=== PATIENT | female | born 1985 | race Caucasian/White ===

== ENCOUNTER 2019-07-27 13:52 | Outpatient (RCR) | payer BC, SELFPAY | END 2019-10-25 23:59 | disposition home or self-care (01) | LOC: ANHLAB 13:52 | PROVIDERS: Visit Provider Obstetrics & Gynecology | DX: O20.0 Threatened abortion (principal); Z3A.00 Weeks of gestation of pregnancy not specified | CPT/HCPCS: 36415 ==

== ENCOUNTER 2019-10-29 08:35 | Emergency (ER) | payer BC, SELFPAY ==
[2019-10-29 09:00] VITALS: BP 125/74; PULSE 106; RESP 16; TEMP 36.5; O2SAT 99
--- NOTE | 2019-10-29 10:16 | ED.GENADULT ---
HPI - General Adult General Chief complaint: Upper Respiratory Infection Stated complaint: cough Time Seen by Provider: 10/29/19 10:16 Source: patient and RN notes reviewed Mode of arrival: ambulatory Limitations: no limitations History of Present Illness HPI narrative: 34-year-old 24 weeks female with complaints of upper respiratory infection symptoms, congestion, and cough for 4 days. Tylenol (last 10/28/19 @23:00) with little relief. Stephie in concerned about her symptoms due to her and had a recent exposure to Influenza. Dry cough with intermittent productive cough (clear phlegm). Rhinorrhea and nasal congestion. No exacerbating factors. No high fevers or chills. No sore throat, drooling, neck or throat swelling. No nausea, vomiting, and abdominal pain. Denies chest pain, dyspnea, coughing up blood, difficulty swallowing, jaw pain, dental pain, facial pain, foreign body sensation, and rash. Complains of LT eye redness for 1 day. Recent exposure to Bacterial Conjunctivitis. Denies itching, light sensitivity, and matted eyes upon arising in the am. No treatment. Denies drainage, swelling or irritation with redness of LT eye. No upper or lower eyelids swelling. No copious drainage. No exacerbating factors No relieving factors. Denies blurred vision, double vision, sensation of foreign body, or pain of eye with movement. Some parts of this dictation were generated by voice recognition software and may contain typographical and/or grammatical inaccuracies. Related Data Home Medications Medication Instructions Recorded Confirmed [facility]#95-ferrous fumarate-FA 1 tablet PO DAILY 10/29/19 10/29/19 [] aspirin [Aspirin Childrens] 81 mg PO DAILY 10/29/19 10/29/19 Allergies Allergy/AdvReac Type Severity Reaction Status Date / Time No Known Allergies Allergy Verified 10/29/19 09:57 Review of Systems Review of Systems: Narrative: CONSTITUTIONAL: Denies fever, chills, sweats. EYES: Denies visual changes, discharge. Complains of redness to LT eye. ENT: Complains of rhinorrhea, congestion. Denies sore throat, otalgia. CARDIOVASCULAR: Denies chest pain, palpitations, edema. RESPIRATORY: Denies dyspnea, wheezing. Complains of dry cough, intermittent productive cough. GASTROINTESTINAL: Denies abdominal pain, nausea, vomiting, diarrhea. GENITOURINARY: Denies dysuria, hematuria, abnormal discharge. SKIN: Denies rash or itching. MUSCULOSKELETAL: Denies acute back pain, joint pain, myalgia. NEUROLOGIC: Denies numbness or focal weakness. PSYCHIATRIC: Denies anxiety or depression. All systems reviewed & are unremarkable except as noted in HPI and below. [facility] Past Medical History Medical History (Updated 10/30/19 @ 00:00 by Earle Gomez) Hypertension during Surgical History Surgical History (Updated 10/29/19 @ 10:29 by SERGEI Zhu) History of adenoidectomy History of tonsillectomy Family History Family History (Updated 10/29/19 @ 10:29 by SERGEI Zhu) Father Acute myocardial infarction Blood clot in vein Social History Social History (Updated 10/29/19 @ 10:30 by SERGEI Zhu) Smoking status: Never smoker Second hand tobacco smoke exposure: No Alcohol intake: never Substance use: never Living arrangements: with family Occupation/Education: unemployed Gender identity (if verbalized by the patient): Female Comments At time of signature, agree with nurse past medical, surgical, social, and family history. There is no relevant family history pertinent to the presenting complaint. Exam Narrative: Exam Narrative: GENERAL: This is a well-nourished, well-developed patient, in no apparent distress. Speaks in full sentences and ambulates with steady gait without dyspnea. HEAD: normocephalic, atraumatic. EYES: PERRL. Sclera clear/white to RT eye only. LT eye sclera angela and clear, no swelling, no tenderness on pal
[2019-10-29 10:40] VITALS: PULSE 80
== END 2019-10-29 10:40 | disposition home or self-care (01) ==
PROVIDERS: Emergency Provider Nurse Practitioner Family; PCP Family Medicine
DX: O99.512 Diseases of the respiratory system complicating pregnancy, second trimester (principal); Z3A.24 24 weeks gestation of pregnancy; J06.9 Acute upper respiratory infection, unspecified; O99.89 Other specified diseases and conditions complicating pregnancy, childbirth and the puerperium; H10.9 Unspecified conjunctivitis
CPT/HCPCS: 87804; 99213; G0463

== ENCOUNTER 2020-01-29 08:49 | Outpatient (RCR) | payer BC, SELFPAY ==
[2020-01-29 09:33] VITALS: BP 147/75; PULSE 112
== END 2020-02-06 07:38 | disposition home or self-care (01) ==
LOC: ANHOBOP 08:49
PROVIDERS: PCP Family Medicine; Visit Provider Obstetrics & Gynecology
DX: O16.3 Unspecified maternal hypertension, third trimester (principal); Z3A.37 37 weeks gestation of pregnancy
CPT/HCPCS: 59025

== ENCOUNTER 2020-02-03 09:46 | Outpatient (CLI) | payer BC, SELFPAY ==
[2020-02-03 10:28] LABS: Hematocrit 35.6 % (37.0-47.0); Hemoglobin 11.6 g/dL (12.0-15.0); Mean Corpuscular HGB Conc 32.6 g/dl (32-36); Mean Corpuscular Hemoglobin 29.7 pg (26-34); Mean Corpuscular Volume 91.3 fl (80-100); Mean Platelet Volume 9.7 fl (7.4-10.4); Platelet Count Result 328 k/mm3 (150-375); Red Cell Distribution Width 13.6 % (11.5-14.5); White Blood Count 12.5 K/mm3 (4.5-10.0)
[2020-02-03 12:49] LABS: Rapid Plasma Reagin Non-Reactive (NonReactive)
== END 2020-02-03 09:47 | disposition home or self-care (01) ==
LOC: ANHLAB 09:47
PROVIDERS: PCP Family Medicine; Visit Provider Obstetrics & Gynecology
DX: Z34.93 Encounter for supervision of normal pregnancy, unspecified, third trimester (principal); Z3A.00 Weeks of gestation of pregnancy not specified
CPT/HCPCS: 36415; 85027; 86592; 86850; 86900; 86901

== ENCOUNTER 2020-02-05 08:30 | Inpatient (IN) | payer BC, SELFPAY ==
--- NOTE | 2020-01-16 14:07 | PC.NURSE ---
PATIENT STATES SHE HAS A PLACENTA PREVIA--STATES DR SMITH IS GOING TO SCHEDULE HER FOR C/S AT END OF JANUARY OR February INSTRUCTED PATIENT ON BEING IN OB 2 HOURS BEFORE SURGERY TIME, NOTHING BY MOUTH AFTER MIDNIGHT THE NIGHT BEFORE SURGERY. PATIENT GIVEN REQUISITION FOR PRE-OP LABS TO BE DRAWN BEFORE SURGERY
[2020-02-05] VITALS (49 sets, daily range): BP systolic 112–144; BP diastolic 62–100; PULSE 67–99; RESP 14–20; TEMP 36.2–37.2; O2SAT 95–100
--- NOTE | 2020-02-05 08:53 | P.PNAN_ITS ---
Anes - Initial Pre Proc Eval Procedure: Operation Date: 02/05/20 10:30 Proposed Procedures p Primary Section - Gris Schwartz MD Date/Time: 02/05/20 08:53 Surgeon: Gris Schwartz MD Pre Op Diagnosis: c/s Patient Data Age: 34 Gender: F Height: Weight: 150 kg Last Vital Signs Pulse 95 02/05/20 08:46 BP 135/83 02/05/20 08:46 Allergies Allergy/AdvReac Type Severity Reaction Status Date / Time No Known Allergies Allergy Verified 01/16/20 13:46 Home Medications Medication Instructions Recorded Confirmed Type [facility]#95-ferrous fumarate-FA 1 tablet PO DAILY 10/29/19 10/29/19 History [] aspirin [Aspirin Childrens] 81 mg PO DAILY 10/29/19 10/29/19 History Patient hx anesthesia problems: none Family hx anesthesia problems: none [facility] Past Medical History Medical History (Updated 02/05/20 @ 08:55 by Nic Bellamy MD) Hypertension during Morbid obesity with BMI of 40.0-44.9, adult Surgical History Surgical History (Updated 10/29/19 @ 10:29 by SERGEI Zhu) History of adenoidectomy History of tonsillectomy Family History Family History (Updated 01/16/20 @ 13:48 by Bill Holguin RN) Father Acute myocardial infarction Pacemaker Blood clot in vein Hypertension Grandparent Cerebrovascular accident Social History Social History (Updated 10/29/19 @ 10:30 by SERGEI Zhu) Smoking status: Never smoker Second hand tobacco smoke exposure: No Alcohol intake: never Substance use: never Gender identity (if verbalized by the patient): Female Spiritual care concerns: No Anes - Eval Final PreProcedure Day of Procedure 02/05/20 08:53 Patient weight: morbidly obese Heart: regular rate and rhythm Lungs: clear to auscultation and normal air movement Airway: Mallampati scale class II Neurological: alert and oriented Last oral intake: >/= 8 hours ASA classification: III Emergent: no Anesthetic plan: proceed Anesthesia type and monitoring: regional spinal Informed Consent: The patient's anesthetic plan and its attendant risks and benefits were discussed with the patient/family/POA. Questions were solicited and answers provided to the satisfaction of the patient/family/POA.
--- NOTE | 2020-02-05 08:58 | LDADM ---
This patient, Stephie Styles, was admitted to Labor/Delivery/Recovery 119 on 02/05/20 at 08:30. Plans for labor, pain management and were discussed with patient. Patient/family oriented to hospital policies and general routines including ID bracelet, bed and alarms, visiting hours, pain management, procedures, bathroom and other care routines, personal items, smoking policy, room service/diet and guest tray routines, security routines, and visiting hours. Patient/Family are encouraged to report perceived risks to care and to ask questions if they do not understand what they are told or what they should do. See OBIX for further documentation.
[2020-02-05] MEDS: LACTATED RINGERS 1,000 ML 999 ML IV CONT (09:33)
[2020-02-05] MEDS: ceFAZolin 3 GM/D5W 100 ML 100 ML IVPB (09:33)
[2020-02-05] MEDS: LACTATED RINGERS 250 ML 999 ML IVPB (10:07)
--- NOTE | 2020-02-05 10:44 | WPDHPUPDATE1 ---
History and Physical Update Update Date/Time: 02/05/20 10:44 History and Physical has been reviewed, including an updated exam of the patient. There are NO changes in the patient's condition. Risks, benefits, and alternatives have been discussed and questions answered. Patient agrees to proceed with procedure.
[2020-02-05] MEDS: LACTATED RINGERS 1,000 ML 100 ML IV CONT (12:06)
--- NOTE | 2020-02-05 12:25 | PM.OP ---
Procedure Note - Brief Procedure Note - Brief Date of procedure: 02/05/20 Pre-op diagnosis: c/s Placenta previa Post-op diagnosis: same Procedure performed: Primary LTCS Anesthesia: spinal Surgeon: Grsi Schwartz MD Estimated blood loss (mL): 1,120 Drains: Yes (Ramirez) Packing: No Pathology: yes Complications: No immediate complications Condition: stable Disposition: PACU Findings: Male infant, cephalic, Apgars 7/8, nuchal cord X 1, normal uterus/tubes/ovaries
--- NOTE | 2020-02-05 14:30 | PC.NURSE ---
Patient transferred to post room #285 via stretcher. Support person present. Oriented to unit, room, information board, rooming in, admission packet and security measures. Patient verbalizes understanding.
--- NOTE | 2020-02-05 15:00 | PC.NURSE ---
Consulted with patient, mother reports she has been given a nipple shield for first feeding. will not drop his tongue for a correct latch and mother's nipples are not drawing out for infant to grasp for a deep latch. Discussed nipple shield precautions and possible complications. Instructions given on application and cleaning of shield. Patient able to return demonstration on proper application of shield. Discussed the need to initiate pumping if continues to nurse with the shield. Patient verbalizes understanding. Reviewed feeding cues, frequencies, duration of feedings, feeding elimination flow sheet, and signs of adequate intake. Demonstrated stimulation techniques to wake infant for feeding. Assisted with to breast. Reviewed positioning/alignment in cross cradle, holding breast in U hold and guided asymmetrical latch on. was able to latch correctly with nipple shield. Infant nursed eagerly with steady draws in short bursts. occasional swallowing noted. . needed constant stimulation to keep awake and nursing. Reviewed signs of a correct latch, effective nursing and suck swallow ratio. Infant was able to maintain latch without discomfort to mother. Nipple care reviewed. Instructed mother to call out for RN assistance if she is unable to latch for feeding or she has discomfort with nursing. Instructed feeding should be initiated three hours from start of last feeding or if feeding cues are noted before. Mother voiced understanding of information shared.
[2020-02-05] MEDS: DEXTROSE 5%/0.45% SOD CHL 1,000 ML 125 ML IV CONT (16:38)
[2020-02-05] MEDS: KETOROLAC 30 MG/ML VIAL (*BKC) IV PUSH (20:11)
--- NOTE | 2020-02-06 02:07 | PC.NURSE ---
Breast pump provided due to refusing to suck and use of nipple shield. Instructions given on breast pump care and usage, pumping schedule, nipple care, and collection and storage of breast milk. Encouraged [id number], breast massage and manual expression to stimulate supply. Pumping log provided and reviewed. Assessed patient for correct flange size, placement and draw. Patient verbalizes and demonstrates understanding of instructions.
[2020-02-06] MEDS: KETOROLAC 30 MG/ML VIAL (*BKC) IV PUSH (04:06)
[2020-02-06 04:15] VITALS: BP 131/73; PULSE 85; RESP 14; TEMP 36.9; O2SAT 100
[2020-02-06 05:14] LABS: Basophils Percent Auto 0.2 % (0.2-1.2); Eosinophils Percent Auto 0.4 % (0-4.4); Hemoglobin 9.6 g/dL (12.0-15.0); Immature Granulocyte Absolute 0.05 K/mm3 (0.00-0.031); Immature Granulocyte Percent A 0.5 % (0-0.5); Lymphocytes Absolute Auto 2.33 K/mm3 (0.9-3.2); Mean Corpuscular HGB Conc 33.1 g/dl (32-36); Mean Corpuscular Hemoglobin 29.8 pg (26-34); Mean Corpuscular Volume 90.1 fl (80-100); Mean Platelet Volume 9.4 fl (7.4-10.4); Monocytes Absolute Auto 0.8 K/mm3 (0.1-0.6); Monocytes Percent Auto 6.9 % (2.6-8.5); Neutrophils Absolute Auto 7.9 K/mm3 (1.3-6.7); Platelet Count Result 270 k/mm3 (150-375); Red Blood Count 3.22 M/mm3 (4.2-5.4); Red Cell Distribution Width 13.3 % (11.5-14.5); White Blood Count 11.1 K/mm3 (4.5-10.0)
--- NOTE | 2020-02-06 07:38 | P.PNOB_ITS ---
OB - PN: Subj Subjective Date/time seen: 02/06/20 07:38 Patient comments: no complaints, pain well controlled, incisional pain, tolerating diet, flatus present and other (Lochia similar to menses) baby status: doing well OB - PN: Obj Data Labs CBC & Chem 7: 02/06/20 04:23 Labs: Laboratory Results - last 24 hr 02/06/20 04:23 WBC 11.1 H RBC 3.22 L Hgb 9.6 L Hct 29.0 L MCV 90.1 MCH 29.8 MCHC 33.1 RDW 13.3 Plt Count 270 MPV 9.4 Immature Gran % (Auto) 0.5 Neut % (Auto) 71.0 Lymph % (Auto) 21.0 [place] % (Auto) 6.9 Eos % (Auto) 0.4 Baso % (Auto) 0.2 Lymph # (Auto) 2.33 [place] # (Auto) 0.8 H Eos # (Auto) 0.0 Baso # (Auto) 0.0 Abs Immat Gran (auto) 0.05 H Absolute Neuts (auto) 7.9 H Absolute Nucleated RBC 0.0 Nucleated RBC % 0.0 OB - PN A/P Plan day: 1 (s/p C section, doing well) Plan: routine care Time Spent With Patient Time: Total time spent is greater than 50% in coordination of care (as documented) at patient's floor/unit and/or counseling patient: Exam Const: General: no acute distress Resp: Auscultation: clear to auscultation bilaterally Cardio: Rate: regular rate Rhythm: regular rhythm GI: Inspection: non-distended, incision (Intact without erythema, drainage, or induration) and other (Fundus firm and nontender at umbilicus) GI Palp: Yes abdominal tenderness (appropriate ) and Yes Soft to palpation Extrem: General: no edema
--- NOTE | 2020-02-06 07:39 | PM.OBDSVD ---
DS: Discharge Diagnosis Discharge Diagnosis (1) Placenta previa before labor and delivery without hemorrhage: Code(s): O44.00 - Complete placenta previa NOS or without hemorrhage, unspecified trimester Status: Acute OB - DS: Summary OB Procedures : None OB Procedures Intrapartum: OB Procedures: : None Peripartum Data Infant Delivery Method: Section Procedures: Procedures Operation Date: 02/05/20 10:30 Actual Procedures Side Surgeon p Primary Section Not Applicable Gris Schwartz MD complications: none Status at Discharge Functional status at discharge: independent ambulation Overall status at discharge: patient is progressing back to baseline Time Spent with Patient Time attestation: Total time spent providing and/or coordinating discharge services: Time spent: Less than 30 minutes DS: Data Data Completed and Pending Pending studies at discharge: Pending at discharge 02/05/20 11:26 Surgical [PTH] Routine Labs on day of discharge: Labs from last 24 hours 02/06/20 04:23 WBC 11.1 H RBC 3.22 L Hgb 9.6 L Hct 29.0 L MCV 90.1 MCH 29.8 MCHC 33.1 RDW 13.3 Plt Count 270 MPV 9.4 Immature Gran % (Auto) 0.5 Neut % (Auto) 71.0 Lymph % (Auto) 21.0 [place] % (Auto) 6.9 Eos % (Auto) 0.4 Baso % (Auto) 0.2 Lymph # (Auto) 2.33 [place] # (Auto) 0.8 H Eos # (Auto) 0.0 Baso # (Auto) 0.0 Abs Immat Gran (auto) 0.05 H Absolute Neuts (auto) 7.9 H Absolute Nucleated RBC 0.0 Nucleated RBC % 0.0 Discharge Plan Discharge Attending physician on discharge: Gris Schwartz Discharging Clinician: Gris Schwartz Anticipated Discharge Date/Time: 02/08/20 12:00 Patient Disposition: Home, Self-Care Activity: may shower and pelvic rest Diet: regular Wound Care Instructions: incision open to air Discharge Instructions: Education: Mom and Baby Guide Given to: Mother Follow-Up: Call your delivering provider's office for an appointment to be seen in: 1 Week Mom and baby should come to the [facility] for the follow-up appointment. Appointment Date/Time: February 09, 2020 at 9:00 am What to expect at your follow-up visit: Blood Pressure Check Call [phone] if you are unable to keep your appointment time. BREAST CARE: 1. Wear a snug supportive bra. 2. For engorgement discomfort: Breast Feeding: A. Apply warm moist washcloths B. Express milk as needed to relieve engorgement C. Wear loose clothing Bottle Feeding: A. May apply ice packs 3. For sore nipples: A. Identify correct latch-on B. Apply warm moist washcloths before and after nursing C. Air dry nipples after nursing D. May apply Lansinoh cream to nipples ABDOMINAL INCISION: (if applicable) 1. Allow incision to air dry 2. Do NOT use lotions for powders on your incision 3. When showering, allow soap and water to run over the incision, but do not wash incision PERINEAL CARE: 1. Until bleeding stops, use your nelson bottle after urinating 2. Change your pad frequently throughout the dayr 3. No tub baths until seen by your physician - You may shower ACTIVITY: 1. Rest as much as possible. 2. Do not exercise or lift anything heavier than your baby (such as laundry or other children.) 3. Avoid stairs or driving as much as possible. 4. Do not put anything into the vagina. No douching, tampons, or sexual activity until seen by physician. NOTIFY PHYSICIAN IF YOU HAVE ANY QUESTIONS OR IF ANY OF THE FOLLOWING SYMPTOMS OCCUR: 1. If your incision becomes red, swollen, or more painful than what you have experienced in the hospital. 2. If your vaginal bleeding becomes foul smelling. 3. If your vaginal bleeding becomes more heavy than a period or if your bleeding changes from pink to bright red. However, you may pass an occasional walnu
[2020-02-06 07:55] VITALS: BP 126/72; PULSE 91; RESP 18; TEMP 36.9; O2SAT 99
--- NOTE | 2020-02-06 08:02 | WPDANLDPN2 ---
Anes-Prog Note L&D Date/Time: 02/06/20 08:02 Comfortable throughout: section Neuraxial method: spinal Epidural/Spinal procedure site: clean & non-tender Neuro status: Neuro function grossly intact. Cardiovascular status: normal Respiratory status: normal Airway patency: baseline Mental status: baseline Post-Op hydration status: normal Vital Signs: Last Vital Signs Temp 98.4 F 02/06/20 04:15 Pulse 85 02/06/20 04:15 Resp 14 02/06/20 04:15 BP 131/73 02/06/20 04:15 Pulse Ox 100 02/06/20 04:15 I/O: Intake & Output 02/05/20 02/06/20 02/06/20 23:59 07:59 15:59 Intake Total 830 500 Output Total 2050 1350 Balance -1220 -850 Post-procedural complaints: pruritis mild, no treatment Patient feedback: Patient satisfied with anesthetic care.
--- NOTE | 2020-02-06 08:03 | WPDANLDNPN2 ---
Anes-Prog Note L&D-Neuraxial Date/Time: 02/06/20 08:03 Opiod-related complaints: pruritis Patient feedback: Patient satisfied with post-operative pain management.
[2020-02-06] MEDS: MULTIVIT/MIN/PREN/FOL AC/IRON TABLET 1 TAB PO (08:34)
[2020-02-06] MEDS: DOCUSATE SODIUM 100 MG CAPSULE PO ×2 (08:35→16:34)
[2020-02-06] MEDS: POLYSACCHARIDE IRON COMPLEX 150 MG CAPSULE PO ×2 (08:35→16:34)
--- NOTE | 2020-02-06 10:50 | PCDIET ---
Consulted with patient, mother reports infant has been sleepy at times and supplemented due to long durations between feedings. Mother has initiated pumping and states will latch without shield. Reviewed feeding cues, frequencies, duration of feedings, feeding elimination flow sheet, and signs of adequate intake. Demonstrated stimulation techniques to wake infant for feeding. Assisted with to breast. Reviewed positioning/alignment in football, holding breast in C hold and guided asymmetrical latch on. was able to latch shallow to breast. Infant would have short chewy sucks on and off at the breast. When questioned mother reports this is how infant has been feeding for most feedings. Mother reported a good feeding early this am where latched and maintained suckling for 15 minutes. Mother states she does not now think infant was latched deeply. Discussed the difference of suckling and effective nursing. correctly. Infant would have an occasional short burst of draws, more sleeping and waking than nursing. Reviewed signs of a correct latch, effective nursing and suck swallow ratio. Infant was[able/unable] to maintain latch without discomfort to mother. Nipple care reviewed. Suggested mother continue to pump after each feeding and supplement EBM/formula of 20 mls per feeding, until infant is more awake and effectively nursing with swallowing noted. Parents are in agreement of feeding plan.
[2020-02-06] MEDS: IBUPROFEN 600 MG TABLET PO ×3 (13:05→23:54)
[2020-02-06 20:50] VITALS: BP 134/69; PULSE 96; RESP 18; TEMP 36.6; O2SAT 98
--- NOTE | 2020-02-07 08:15 | PC.NURSE ---
PT introductions made and plan of care discussed per post op c section, pain management, breast feeding, pumping and supplementing, daily care activities. PT verbalized understanding of such care.
[2020-02-07] MEDS: ACETAMINOPHEN 325 MG TABLET 650 MG PO ×3 (08:28→21:54)
[2020-02-07] MEDS: SIMETHICONE 80 MG TAB.CHEW PO ×3 (08:29→18:10)
[2020-02-07] MEDS: IBUPROFEN 600 MG TABLET PO ×3 (08:29→21:53)
[2020-02-07] MEDS: DOCUSATE SODIUM 100 MG CAPSULE PO ×2 (08:29→18:10)
[2020-02-07] MEDS: POLYSACCHARIDE IRON COMPLEX 150 MG CAPSULE PO ×2 (08:29→18:10)
[2020-02-07] MEDS: MULTIVIT/MIN/PREN/FOL AC/IRON TABLET 1 TAB PO (08:29)
[2020-02-07 08:30] VITALS: BP 121/75; PULSE 86; PULSE 96; RESP 18; TEMP 36.4; O2SAT 100; O2SAT 98
--- NOTE | 2020-02-07 10:15 | PM.OBPNVD ---
OB - PN: Subj Subjective Date/time seen: 02/07/20 10:15 Patient comments: no complaints, pain well controlled, incisional pain, tolerating diet and flatus present OB - PN: Obj Data Labs CBC & Chem 7: 02/06/20 04:23 OB - PN A/P Plan day: 2 Plan: routine care Comments: POD#2 LTCS - no problems, Time Spent With Patient Time: Total time spent is greater than 50% in coordination of care (as documented) at patient's floor/unit and/or counseling patient: Exam Const: General: comfortable, no acute distress and alert Resp: Effort & Inspection: normal respiratory effort Auscultation: no crackles, no rales and no rhonchi Cardio: Rate: regular rate Heart sounds: no click, no murmurs and no rubs GI: Inspection: non-distended GI Palp: No Tenderness to palpation present (GI) Auscultation: normal bowel sounds Other: Incision - CDI Extrem: General: normal to inspection, no pedal edema and no calf tenderness
[2020-02-07 19:50] VITALS: BP 141/83; PULSE 101; RESP 18; TEMP 36.3; O2SAT 95
[2020-02-08] MEDS: IBUPROFEN 600 MG TABLET PO (04:22)
[2020-02-08] MEDS: ACETAMINOPHEN 325 MG TABLET 650 MG PO ×2 (04:23→09:41)
--- NOTE | 2020-02-08 07:30 | PC.NURSE ---
PT introductions made and plan of care discussed per post op c section, pain management, breast/bottle/pumping, daily care activities and pending discharge to home. PT verbalized understanding of such care.
--- NOTE | 2020-02-08 07:55 | PM.OBPNVD ---
OB - PN: Subj Subjective Date/time seen: 02/08/20 07:55 Patient comments: no complaints, pain well controlled, tolerating diet, flatus present and other (Lochia less than menses. Ambulating and voiding without problems) baby status: doing well OB - PN: Obj Data Labs CBC & Chem 7: 02/06/20 04:23 OB - PN A/P Plan day: 3 (s/p section, doing well and ready to be discharged home) Plan: routine care, discharge home and other (Follow up in office in 1 week) Time Spent With Patient Time: Total time spent is greater than 50% in coordination of care (as documented) at patient's floor/unit and/or counseling patient: Exam Const: General: no acute distress Resp: Auscultation: clear to auscultation bilaterally Cardio: Rate: regular rate Rhythm: regular rhythm GI: Inspection: non-distended, incision (Intact without erythema, drainage, or induration) and other (Fundus firm and nontender below umbilicus) GI Palp: Yes abdominal tenderness (appropriate) and Yes Soft to palpation Extrem: General: no edema
[2020-02-08 08:15] VITALS: BP 149/88; PULSE 96; RESP 18; TEMP 37.6; O2SAT 100
[2020-02-08 09:30] VITALS: PULSE 82; RESP 18; O2SAT 100
[2020-02-08] MEDS: DOCUSATE SODIUM 100 MG CAPSULE PO (09:38)
[2020-02-08] MEDS: MULTIVIT/MIN/PREN/FOL AC/IRON TABLET 1 TAB PO (09:38)
[2020-02-08] MEDS: SIMETHICONE 80 MG TAB.CHEW PO (09:38)
[2020-02-08] MEDS: POLYSACCHARIDE IRON COMPLEX 150 MG CAPSULE PO (09:38)
--- NOTE | 2020-02-08 10:00 | PC.NURSE ---
Patient viewed the discharge video Mother & Baby Care, The First Two Weeks . Patient was given the opportunity and encouraged to ask questions. Patient verbalized understanding of information shared and has been given the mother/baby guide for home reference.
[2020-02-08 11:40] VITALS: BP 138/74; PULSE 82; RESP 18; TEMP 37; O2SAT 100
--- NOTE | 2020-02-08 12:00 | PC.NURSE ---
PT received discharge instructions per protocol and verbalized understanding of such instructions.
--- NOTE | 2020-02-08 14:02 | PC.NURSE ---
PT discharged to home ambulatory to waiting car accompanied by spouse and infant. Follow up appts confirmed
[2020-02-09 08:54] VITALS: BP 137/79; PULSE 88; RESP 20; TEMP 37.1; O2SAT 100
--- NOTE | 2020-02-19 13:59 | OP_ITS ---
DATE OF PROCEDURE: 02/05/2020 PREOPERATIVE DIAGNOSIS: Intrauterine at 39 weeks with placenta previa. POSTOPERATIVE DIAGNOSIS: Intrauterine at 39 weeks with placenta previa. PROCEDURE PERFORMED: Primary low transverse section. ANESTHESIA: Spinal. ESTIMATED BLOOD LOSS: 1120 mL. COMPLICATIONS: None. FINDINGS: Male , cephalic presentation, 7 and 8. Nuchal cord x1. Normal uterus, tubes, and ovaries. INDICATIONS: A 34-year-old, who had been diagnosed with placenta previa throughout her . It had not resolved as of a few days prior to her scheduled , so she was recommended to proceed with primary . She had agreed and signed consent after the risks, benefits, complications, and alternatives were discussed. DESCRIPTION OF PROCEDURE: She was taken to the operating room where she was prepared and draped in the normal sterile fashion in the dorsal supine position with a leftward tilt. After spinal anesthesia had been obtained and found to be adequate, a Pfannenstiel skin incision was made with a scalpel and extended to the underlying layer of fascia with the scalpel. The fascia was incised in the midline with a scalpel and extended laterally with Calero scissors. The underlying rectus muscles were dissected off bluntly and sharply. The peritoneum was entered sharply and extended inferiorly and superiorly with good visualization of the bladder. The bladder blade was inserted. The lower uterine segment was incised in a transverse fashion with the scalpel. The incision was digitally stretched in a cephalocaudad direction. The membranes were ruptured with clear fluid noted. The 's head was delivered atraumatically. Nuchal cord x1, which was reduced easily. The shoulders and body were delivered easily. The cord was clamped x2 and cut and the infant passed to the awaiting nurse. Cord gas and cord blood were obtained. The placenta was manually extracted. The uterus was exteriorized and cleared of all clots and debris. The uterine incision was closed using 0 Vicryl in a running locked fashion. A 2nd layer of the same suture was used for hemostasis and reinforcement. The uterus was then returned to the abdomen. The gutters were cleared of all clots and debris. The uterine incision was reinspected and found to be hemostatic. The rectus muscles were inspected. Any bleeding points were cauterized. The fascia was then closed using 0 Vicryl in a running fashion. Subcutaneous tissue was irrigated. Any bleeding points were cauterized. The subcutaneous tissue was reapproximated using 2-0 Vicryl [id number] sutures and the skin was closed with Insorb absorbable leobardo. She tolerated the procedure well. Sponge, lap, needle, and instrument counts were correct x2 and she was taken to the recovery room in stable condition. Venita I MT: Jace
--- NOTE | 2020-03-05 18:06 | HP_ITS ---
DATE OF SERVICE: This is a late entry from her scheduled on February 04. HISTORY OF PRESENT ILLNESS: The patient is a 34-year-old G2, P1-0-0-1 at 38 weeks and 3 days gestation coming in for a primary due to placenta previa. Her has been complicated by chronic hypertension on no medications. She has been asymptomatic with no headaches or visual changes. She is feeling normal movement. Occasional contractions. No vaginal bleeding. No leakage of fluid. PAST MEDICAL HISTORY: Hypertension. MEDICATIONS: vitamin. ALLERGIES: NO KNOWN DRUG ALLERGIES. PAST SURGICAL HISTORY: Tonsillectomy. SOCIAL HISTORY: Negative for tobacco, alcohol, or drug use. OB HISTORY: Full-term vaginal delivery x1. 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 REVIEW OF SYSTEMS: Negative. PHYSICAL EXAMINATION: VITAL SIGNS: Her weight is 332 pounds. Blood pressure 137/84. GENERAL: No apparent distress. HEART: Regular rate and rhythm. LUNGS: Clear to auscultation. ABDOMEN: Gravid, soft, nontender, nondistended. EXTREMITIES: Nontender with trace edema. ASSESSMENT/PLAN: 1. G2, P1-0-0-1 at 38 weeks and 3 days of gestation with placenta previa. She agrees to proceed with primary or delivering at 38 weeks due to chronic hypertension. No current signs or symptoms of preeclampsia. 2. status is reassuring. 3. GBS is negative. D I MT: Jace
== END 2020-02-08 14:02 | disposition home or self-care (01) | DRG 788 ==
LOC: ANHLDR 08:35 → ANHOB2 16:18
PROVIDERS: Admitting Provider Obstetrics & Gynecology; PCP Family Medicine; Visit Provider Obstetrics & Gynecology
PROC: 10D00Z1 Extraction of Products of Conception, Low, Open Approach (ICD-10-PCS; CPT 59514; principal; 2020-02-05 10:30)
DX: O13.4 Gestational [pregnancy-induced] hypertension without significant proteinuria, complicating childbirth (principal); Z37.0 Single live birth; Z3A.38 38 weeks gestation of pregnancy; O99.214 Obesity complicating childbirth; E66.01 Morbid (severe) obesity due to excess calories; O44.03 Complete placenta previa NOS or without hemorrhage, third trimester; O99.73 Diseases of the skin and subcutaneous tissue complicating the puerperium; L29.9 Pruritus, unspecified
CPT/HCPCS: 36415; 85025; 85027; 86592; 86850; 86900; 86901; 88307; A9270; J0131; J0690; J1885; J2274; J2590; J7120

== ENCOUNTER 2020-11-19 16:50 | Outpatient (CLI) | payer BC, SELFPAY | END 2020-11-19 16:51 | disposition home or self-care (01) | LOC: ANHCOVIDVC 16:50 | PROVIDERS: PCP Obstetrics & Gynecology | DX: Z23 Encounter for immunization (principal) | CPT/HCPCS: 0001A; 91300 ==

== ENCOUNTER 2020-12-10 16:48 | Outpatient (CLI) | payer BC, SELFPAY | END 2020-12-10 16:49 | disposition home or self-care (01) | LOC: ANHCOVIDVC 16:49 | PROVIDERS: PCP Obstetrics & Gynecology | DX: Z23 Encounter for immunization (principal) | CPT/HCPCS: 0002A; 91300 ==

== ENCOUNTER 2023-01-04 09:25 | Outpatient (CLI) | payer BC, SELFPAY ==
[2023-01-04 13:48] LABS: Basophils Percent Auto 0.4 % (0.2-1.2); Eosinophils Absolute Auto 0.1 K/mm3 (0-0.3); Eosinophils Percent Auto 1.1 % (0-4.4); Hematocrit 42.3 % (37.0-47.0); Hemoglobin 13.3 g/dL (12.0-15.0); Immature Granulocyte Absolute 0.02 K/mm3 (0.00-0.031); Immature Granulocyte Percent A 0.3 % (0-0.5); Lymphocytes Absolute Auto 2.72 K/mm3 (0.9-3.2); Lymphocytes Percent Auto 34.2 % (18.3-44.2); Mean Corpuscular HGB Conc 31.4 g/dl (32-36); Mean Corpuscular Hemoglobin 28.7 pg (26-34); Mean Corpuscular Volume 91.2 fl (80-100); Mean Platelet Volume 9.5 fl (7.4-10.4); Monocytes Absolute Auto 0.5 K/mm3 (0.1-0.6); Monocytes Percent Auto 6.8 % (2.6-8.5); Neutrophils Absolute Auto 4.6 K/mm3 (1.3-6.7); Neutrophils Percent Auto 57.2 % (45.5-73.1); Platelet Count Result 386 k/mm3 (150-375); Red Blood Count 4.64 M/mm3 (4.2-5.4); Red Cell Distribution Width 13.1 % (11.5-14.5)
[2023-01-04 13:54] LABS: Hemoglobin A1C 5.7 % (<5.7)
[2023-01-04 13:56] LABS: Alanine Aminotransferase 23 U/L (6-35); Albumin Level 4.4 g/dL (3.5-5.1); Alkaline Phosphatase 57 U/L (38-126); Anion Gap 7 mmol/L (8-16); Aspartate Amino Transferase 32 U/L (14-36); Bilirubin,Total 0.5 mg/dL (0.2-1.3); Blood Urea Nitrogen 11 mg/dL (7-17); Calcium 8.7 mg/dL (8.4-10.2); Carbon Dioxide 29 mmol/L (22-30); Chloride 102 mmol/L (98-107); Cholesterol 237 mg/dL (0-200); Estimated Glomerular Filt Rate > 60; Glucose 90 mg/dL (65-110); HDL Direct 35 mg/dL; Sodium 138 mmol/L (137-145); Triglycerides 222 mg/dL (<150)
[2023-01-04 14:07] LABS: LDL Cholesterol Direct 150 mg/dL
== END 2023-01-04 09:26 | disposition home or self-care (01) ==
LOC: ANHGOSHLAB 09:27
PROVIDERS: PCP Emergency Medicine; Visit Provider Emergency Medicine
DX: Z00.00 Encounter for general adult medical examination without abnormal findings (principal); E66.01 Morbid (severe) obesity due to excess calories; Z68.42 Body mass index [BMI] 45.0-49.9, adult; F32.81 Premenstrual dysphoric disorder; F32.A Depression, unspecified
CPT/HCPCS: 36415; 80053; 80061; 83036; 84443; 85025

== ENCOUNTER 2023-05-24 19:11 | Emergency (ER) | payer BC, SELFPAY ==
[2023-05-24 19:17] VITALS: BP 148/73; PULSE 90; RESP 20; TEMP 37.3; O2SAT 98
--- NOTE | 2023-05-24 20:18 | ED.GENADULT ---
HPI - General Adult General Chief complaint: Upper Respiratory Infection Stated complaint: Sore Throat Time Seen by Provider: 05/24/23 20:18 Source: patient, RN notes reviewed and old records reviewed Mode of arrival: ambulatory Limitations: no limitations History of Present Illness HPI narrative: 37 year old female presents to [facility] care with complaints of sore throat starting today with headache.. Patient reports that daughter has been ill for 3 days with sore throat also. Daughter tested positive in clinic today with patient having positive exposure to strep. Patient reports that she has not taken any ORC medications for her symptoms. MD complaint: sore throat started today positive exposure Onset (ago): day(s) (today symptoms started) Severity scale (1-10): 5 Quality: aching Treatments prior to arrival: none Related Data Allergies Allergy/AdvReac Type Severity Reaction Status Date / Time No Known Allergies Allergy Verified 05/24/23 19:57 Review of Systems Review of Systems: CONSTITUTIONAL: REports malaise, chills, sweats, or fever. EYES: Denies visual changes, redness, or discharge. ENT: Reports rhinorrhea, congestion, no sinus pain, no otalgia, positive for sore throat. CARDIOVASCULAR: Denies chest pain, palpitations, or edema. RESPIRATORY: Reports no cough.? Denies dyspnea. GASTROINTESTINAL: Denies abdominal pain, nausea, vomiting, diarrhea SKIN: Denies rash or itching. MUSCULOSKELETAL: Denies myalgia. NEUROLOGIC: Reports headache. All systems reviewed & are unremarkable except as noted in HPI and below PMFSH Past Medical History Medical History (Updated 05/26/23 @ 12:15 by Mona Gutierrez NP) Anxiety and depression Gestational hypertension Morbid obesity with BMI of 40.0-44.9, adult PMDD (premenstrual dysphoric disorder) Vaginal delivery x1 Surgical History Surgical History History of adenoidectomy History of tonsillectomy Previous section x1 Family History Family History Father Acute myocardial infarction Pacemaker Blood clot in vein genetic disorder factor 2 causing multiple blood clots Hypertension Cerebrovascular accident Hypercholesteremia Grandparent Cerebrovascular accident Social History Social History Smoking status: Never smoker Second hand tobacco smoke exposure: No Alcohol intake: never Substance use: never Lack of Transportation: No Lack of Food: Never True Current Housing: I Have Housing Concerned About Future Housing: No Difficulty Paying Gas/Electric Bills: No Difficulty Paying for Meds: No Currently Unemployed: No Education: Bachelor's Degree Living arrangements: with family Occupation/Education: unemployed Gender identity (if verbalized by the patient): Female Spiritual care concerns: No Comments At time of signature, agree with nursing past medical, surgical, social and family history. There is no relevant family history pertinent to the presenting complaint Exam Narrative: GENERAL: Well-appearing, well-nourished, and in no acute distress. HEAD: Normocephalic EYES: PERRLA, conjunctivae clear ENT: Nares clear, turbinates edematous and erythematous, clear discharge. Mucous membranes moist. Headache discomfort,TM pearly main with dull light reflex bilaterally; no tragal tenderness. Oropharynx erythematous without lesions. Tonsils not present and throat without exudate, no drooling, no hoarseness, no trismus, uvula midline.some post nasal discharge NECK: Supple. lymphadenopathy CHEST: Clear to auscultation, breath sounds equal. No wheezing, rhonchi, rales, or stridor. No respiratory distress, speaks in full sentences.no cough noted SAO2 98% on room air HEART: Regular rate and rhythm. No murmur heard. SKIN: Warm, dry,
== END 2023-05-24 20:34 | disposition home or self-care (01) ==
PROVIDERS: Emergency Provider Registered Nurse; PCP Emergency Medicine
DX: J02.9 Acute pharyngitis, unspecified (principal); Z20.818 Contact with and (suspected) exposure to other bacterial communicable diseases; E66.01 Morbid (severe) obesity due to excess calories; Z68.41 Body mass index [BMI] 40.0-44.9, adult; F41.9 Anxiety disorder, unspecified; F32.A Depression, unspecified
CPT/HCPCS: 87081; 87880; 99213; G0463

== ENCOUNTER 2023-06-25 12:51 | Emergency (ER) | payer BC, SELFPAY ==
[2023-06-25 12:56] VITALS: BP 153/94; PULSE 107; RESP 16; TEMP 36.3; O2SAT 96
--- NOTE | 2023-06-25 13:11 | ED.URI ---
HPI - URI/Sore Throat General Chief Complaint: Upper Respiratory Infection Stated Complaint: cough/congestion Source: patient and RN notes reviewed History of Present Illness HPI Narrative: 38 yo F presents to urgent care with complaints of a cough x 3 days. Pt states she feels congestion in her chest and noticed today on a walk with her son, her HR got up high. Denies any chest pain, palpitations, SOB, sore throat, ear pain, sinus congestion, fevers, chills, N/V/D. Pt took an allergy pill and a chloricidine today without relief. Related Data Allergies Allergy/AdvReac Type Severity Reaction Status Date / Time No Known Allergies Allergy Verified 06/25/23 13:00 Review of Systems Review of Systems: Pertinent positives and pertinent negatives per HPI. PMFSH Past Medical History Medical History (Updated 06/25/23 @ 13:12 by Park White, COLE) Anxiety and depression Gestational hypertension Morbid obesity with BMI of 40.0-44.9, adult PMDD (premenstrual dysphoric disorder) Vaginal delivery x1 Surgical History Surgical History History of adenoidectomy History of tonsillectomy Previous section x1 Family History Family History Father Acute myocardial infarction Pacemaker Blood clot in vein genetic disorder factor 2 causing multiple blood clots Hypertension Cerebrovascular accident Hypercholesteremia Grandparent Cerebrovascular accident Social History Social History Smoking status: Never smoker Second hand tobacco smoke exposure: No Alcohol intake: never Substance use: never Lack of Transportation: No Lack of Food: Never True Current Housing: I Have Housing Concerned About Future Housing: No Difficulty Paying Gas/Electric Bills: No Difficulty Paying for Meds: No Currently Unemployed: No Education: Bachelor's Degree Living arrangements: with family Occupation/Education: unemployed Gender identity (if verbalized by the patient): Female Spiritual care concerns: No Comments At the time of my signature, I reviewed and agree with the nursing past medical, surgical, social, and family history. There is no relevant family history pertinent to the patient complaint. Exam Narrative: GENERAL: This is a well-nourished, well-developed patient, in no apparent distress. HEAD: normocephalic, atraumatic. EYES: Sclera clear/white. Vision is grossly intact. EARS: External ears normal, auditory canals clear and without drainage, TMs normal without perforation. Hearing grossly intact. NOSE: External nose normal with no obvious nasal discharge, nares without redness, no rhinorrhea. THROAT: Mucous membranes moist, posterior pharynx clear. NECK: Neck supple, non-tender without lymphadenopathy, masses or thyromegaly. CARDIOVASCULAR: Regular rate and rhythm without murmurs, gallops, or rubs. RESPIRATORY: Clear to auscultation. Breath sounds equal bilaterally. No wheezes, rales, or rhonchi. GASTROINTESTINAL: Abdomen soft, non-tender, nondistended. Bowel sounds are active. No hepato-splenomegaly, or palpable masses. No guarding. SKIN: warm, intact with no suspicious lesions or rash, good texture and turgor. NEURO: awake, alert, and oriented to person, place and time. There were no obvious focal neurologic abnormalities. BACK: Nontender without deformity or crepitus. No flank tenderness. Course Course Level of Care: Express Care Visit Vital Signs Vital signs: Vital Signs Temperature 97.4 F L 06/25/23 12:56 Pulse Rate 107 H 06/25/23 12:56 Respiratory Rate 16 06/25/23 12:56 Blood Pressure 153/94 H 06/25/23 12:56 Pulse Oximetry 96 06/25/23 12:56 Oxygen Delivery Room Air 06/25/23 12:56 Temperature 97.4 F L 06/25/23 12:56 Pulse Rate 107 H 06/25/23 12:56 Respiratory Rate 16
== END 2023-06-25 13:16 | disposition home or self-care (01) ==
PROVIDERS: Emergency Provider Nurse Practitioner Family; PCP Emergency Medicine
DX: B34.9 Viral infection, unspecified (principal); E66.01 Morbid (severe) obesity due to excess calories; Z68.41 Body mass index [BMI] 40.0-44.9, adult
CPT/HCPCS: 99213; G0463

== ENCOUNTER 2024-03-29 09:56 | Outpatient (CLI) | payer BC, SELFPAY ==
[2024-03-29 20:17] LABS: Alanine Aminotransferase 18 U/L (6-35); Albumin Level 4.4 g/dL (3.5-5.1); Alkaline Phosphatase 57 U/L (38-126); Anion Gap 7 mmol/L (4-12); Aspartate Amino Transferase 27 U/L (14-36); Bilirubin,Total 0.4 mg/dL (0.2-1.3); Blood Urea Nitrogen 14 mg/dL (7-17); Calcium 8.9 mg/dL (8.4-10.2); Carbon Dioxide 31 mmol/L (22-30); Chloride 97 mmol/L (98-107); Cholesterol 236 mg/dL (0-200); Estimated Glomerular Filt Rate > 60; Glucose 101 mg/dL (65-110); HDL Direct 34 mg/dL; Potassium 4.6 mmol/L (3.4-5.0); Sodium 135 mmol/L (137-145); Triglycerides 249 mg/dL (<150)
[2024-03-29 20:34] LABS: LDL Cholesterol Direct 151 mg/dL
[2024-03-29 20:36] LABS: Hemoglobin A1C 5.9 % (<5.7)
== END 2024-03-29 09:57 | disposition home or self-care (01) ==
LOC: ANHGOSHLAB 09:58
PROVIDERS: PCP Emergency Medicine; Visit Provider Emergency Medicine
DX: E66.01 Morbid (severe) obesity due to excess calories (principal); Z68.42 Body mass index [BMI] 45.0-49.9, adult; F32.A Depression, unspecified
CPT/HCPCS: 36415; 80053; 80061; 83036; 84443

== ENCOUNTER 2024-07-27 14:19 | Emergency (ER) | payer BC, SELFPAY ==
--- NOTE | ~2024-07-27 | XR_ITS ---
EXAMINATION: XR chest 2V DATE: 07/27/2024 14:44 INDICATION: Cough. TECHNIQUE: Frontal and lateral views of the chest were obtained on 3 radiographs. COMPARISON: None. FINDINGS: There is no pneumonia, pleural effusion, or pneumothorax. The heart size is normal. IMPRESSION: 1. No acute cardiopulmonary disease. Reviewed, dictated and finalized at location A. 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
[2024-07-27 14:29] VITALS: BP 157/79; PULSE 73; RESP 16; TEMP 36.4; O2SAT 99
--- NOTE | 2024-07-27 14:35 | ED_ITS ---
HPI - URI/Sore Throat General Chief Complaint: Upper Respiratory Infection Stated Complaint: has walking pnuemonia/still coughing Time Seen by Provider: 07/27/24 14:29 Source: patient and RN notes reviewed Mode of arrival: ambulatory Limitations: no limitations History of Present Illness HPI Narrative: Patient presents today complaining of 10-12 day history of cough. Denies fever, shortness of breath, chest pain. She was seen 4 days ago at her PCPs office and diagnosed with a cough/probable bronchitis and treated with doxycycline and prednisone for, ?probable bacterial infection. ? Family member was recently diagnosed with atypical pneumonia. Patient states symptoms have not improved with the prescriptions. Related Data Home Medications Medication Instructions Recorded Confirmed magnesium 200 mg tablet 400 mg PO DAILY 08/05/23 07/24/24 multivitamin 1 tablet PO DAILY 08/05/23 07/24/24 cetirizine 10 mg capsule (Zyrtec) 10 mg PO DAILY PRN 03/13/24 07/24/24 lamotrigine 25 mg tablet mg PO 07/24/24 07/24/24 Allergies Allergy/AdvReac Type Severity Reaction Status Date / Time No Known Allergies Allergy Verified 07/24/24 11:30 Review of Systems Review of Systems: CONSTITUTIONAL: Denies body aches, fever, chills, or sweats. EYES: Denies visual changes, redness, or discharge. ENT: Denies rhinorrhea, congestion, sore throat, or otalgia. CARDIOVASCULAR: Denies chest pain, palpitations, or edema. RESPIRATORY: Denies dyspnea.+ cough GASTROINTESTINAL: Denies abdominal pain, nausea, vomiting, or diarrhea. GENITOURINARY: Denies dysuria or hematuria. SKIN: Denies rash, itching, or wounds. MUSCULOSKELETAL: Denies back pain, joint pain, or myalgia. NEUROLOGIC: Denies headache, numbness, tingling, or weakness. PSYCH: Denies depression or anxiety. [facility] Past Medical History Medical History Anxiety and depression Gestational hypertension Morbid obesity with BMI of 40.0-44.9, adult PMDD (premenstrual dysphoric disorder) Vaginal delivery x1 Surgical History Surgical History History of adenoidectomy History of tonsillectomy Previous section x1 Family History Family History Father Acute myocardial infarction Pacemaker Blood clot in vein genetic disorder factor 2 causing multiple blood clots Hypertension Cerebrovascular accident Hypercholesteremia Grandparent Cerebrovascular accident Social History Social History Smoking status: Never smoker Second hand tobacco smoke exposure: No Alcohol intake: never Substance use: never Lack of Transportation: No Lack of Food: Never True Current Housing: I Have Housing Concerned About Future Housing: No Difficulty Paying Gas/Electric Bills: No Difficulty Paying for Meds: No Currently Unemployed: No Education: Bachelor's Degree Living arrangements: with family Occupation/Education: unemployed Gender identity (if verbalized by the patient): Female Spiritual care concerns: No Comments At time of signature, I have reviewed and agree with nursing past medical, surgical, social and family history unless otherwise noted. Please see nursing chart for further information. There is no relevant family history pertinent to the presenting complaint Exam Narrative: GENERAL: Well-appearing, well-nourished, and in no acute distress. HEAD: Normocephalic, atraumatic. EYES: EOMI. No redness or drainage. Conjunctivae normal. ENT: Mucous membranes pink and moist. Nares clear. No rhinorrhea. TMs normal bilaterally. Throat normal. Uvula midline. NECK: Normal AROM. Supple. No lymphadenopathy. CHEST: No respiratory distress. Slightly diminished in the left lower lobe, otherwise clear. HEART: Regular rate and rhythm. No murmur appreciated. EXTREMITIES: Normal range of motion. No edema. SKIN: Warm, dry, no rash. Capillary refill normal. Normal skin turgor. NEURO: No focal deficits. Alert and oriented x3. Gait steady. PSYCH: Normal affect. No signs of depression or anxiety. Course Course Level of Care: Express Care Visit Vital Signs Vital signs: Vital Signs Temperature 97.6 F 07/27/24 14:29 Pulse Rate 73 07/27/24 14:29 Respiratory Rate 16 07/27/24 14:29 Blood Pressure 157/79 H 07/27/24 14:29 Pulse Oximetry 99 07/27/24 14:29 Oxygen Delivery Room Air 07/27/24 14:29 Temperature 97.6 F 07/27/24 14:29 Pulse Rate 73 07/27/24 14:29 Respiratory Rate 16 07/27/24 14:29 Blood Pressure 157/79 H 07/27/24 14:29 Pulse Oximetry 99 07/27/24 14:29 Oxygen Delivery Room Air 07/27/24 14:29 Reviewed MDM - URI/Sore Throat MDM Narrative Medical decision making narrative: Chest x-ray negative for pneumonia. Medrol Dosepak is likely not strong enough to help with patient's bronchitis symptoms. Will switch over to prednisone. Will also prescribe some Cheratussin for night if needed. Anticipatory guidance given. Differential Diagnosis Differential diagnosis: Likely upper respiratory infection, viral infection, bronchitis and other (Pneumonia) Imaging Data Radiologist's impression: ITS Impressions Chest X-Ray 07/27/24 15:03 IMPRESSION: 1. No acute cardiopulmonary disease. Critical Care Time Critical Care Time Critical Care Time: No Discharge Plan Discharge Clinical Impression: Bronchitis Patient Disposition: Home, Self-Care Condition: Stable Instructions: Acute Bronchitis (ED) Additional Instructions: Your chest x-ray is negative for pneumonia. Please stop the Medrol Dosepak and take the prednisone as directed. Take the Cheratussin at night if needed. Do not drive within 6 hours of taking the Cheratussin as it can make you drowsy. Continue Mucinex during the day and make sure you drink water while taking it. Follow-up with your PCP in 3 days if symptoms are not improving, or sooner if symptoms worsen. Go to the ER if you develop any shortness of breath or chest pain. Your blood pressure was elevated above 120/80 today at Urgent Care. This puts you above the threshold for follow up. Please schedule a followup visit with your personal physician as soon as possible, for further evaluation and treatment. Even blood pressure exceeding 120/80 may indicate pre-hypertension. Prescriptions: New prednisone 10 mg tablet See Rx Instructions .ROUTE .COMPLEX Qty: 36 0RF Rx Instructions: 5 tabs daily x3 days,then 4 tabs daily x3 days,then 3 tabs daily x3 days codeine-guaifenesin 10-100 mg/5 mL liquid 5 ml PO HS PRN (Reason: cough) Qty: 118 0RF No Action albuterol sulfate 90 mcg/actuation HFA aerosol inhaler 2 puff inhalation QID PRN (Reason: shortness of breath or wheezing) Qty: 8.5 0RF Zyrtec 10 mg capsule 10 mg PO DAILY PRN bupropion HCl [Wellbutrin XL] 150 mg tablet extended release 24 hr 150 mg PO QAM Qty: 90 1RF Rx Instructions: Take with the 300 mg dose bupropion HCl [Wellbutrin XL] 300 mg tablet extended release 24 hr 300 mg PO QAM Qty: 90 1RF lisinopril 10 mg tablet 10 mg PO DAILY Qty: 90 1RF lamotrigine 25 mg tablet PO benzonatate 200 mg capsule 200 mg PO TID Qty: 30 0RF methylprednisolone [Medrol ([place])] 4 mg tablets,dose pack See Rx Instructions PO PER PKG DIR Qty: 21 0RF Rx Instructions: PO PER PKG DIR for 6 days multivitamin Tablet 1 tablet PO DAILY magnesium 200 mg tablet 400 mg PO DAILY doxycycline hyclate 100 mg capsule 100 mg PO BID Qty: 20 0RF Follow-up/Referrals: Darrius Miranda MD [Primary Care Provider] - Time of Disposition: 15:19
== END 2024-07-27 15:26 | disposition home or self-care (01) ==
PROVIDERS: Emergency Provider Nurse Practitioner; PCP Emergency Medicine
DX: J40 Bronchitis, not specified as acute or chronic (principal)
CPT/HCPCS: 71046; 99213; G0463

== ENCOUNTER 2025-05-18 10:51 | Emergency (ER) | payer BC, SELFPAY ==
[2025-05-18 10:54] VITALS: BP 153/79; PULSE 95; RESP 20; TEMP 36.5; O2SAT 99
--- NOTE | 2025-05-18 11:08 | ED_ITS ---
HPI - URI/Sore Throat General Chief Complaint: Upper Respiratory Infection Stated Complaint: sinus infection Time Seen by Provider: 05/18/25 11:08 Source: patient and RN notes reviewed Mode of arrival: ambulatory Limitations: no limitations History of Present Illness HPI Narrative: 39 y/o female presented for c/o nasal congestion and drainage, sore throat, and cough. Onset 2 weeks. Cough is productive of yellow sputum. Started taking Sudafed at onset. Denies sob, wheezing n/v/d/f/c. MD elicited complaint: cough Related Data Home Medications ?Medication ?Instructions ?Recorded ?Confirmed ?Last Taken ?Type lamotrigine 25 mg tablet mg PO 07/24/24 04/26/25 Unkn own History pregabalin 75 mg capsule (Lyrica) 75 mg PO BID 5 04/26/25 Unknown History sertraline 100 mg tablet (Zoloft) 100 mg PO DAILY 04/0704/26/25 Unknown History guanfacine 1 mg tablet,extended mg PO 05/18/25 Unknow n History release 24 hr Held on 05/18/25. Instructions: Patient no longer taking lamotrigine 200 mg tablet mg 05/18/25 Unknown History Held on 05/18/25. Instructions: Order Change methylphenidate HCl 18 mg mg PO 05/18/25 Unknown Hist ory tablet,extended release 24 hr Held on 05/18/25. Instructions: Patient no longer taking sertraline 50 mg tablet mg 05/18/25 Unknown History Held on 05/18/25. Instructions: Order Change Allergies Allergy/AdvReac Type Severity Reaction Status Date / Time lisinopril AdvReac Mild Cough Verified 05/18/25 10:57 Review of Systems Review of Systems: CONSTITUTIONAL:denies malaise, body aches, chills, sweats, fever EYES: Denies visual changes, redness, or discharge ENT: Reports rhinorrhea, congestion, sinus pain, denies otalgia, sore throat CARDIOVASCULAR: Denies chest pain, palpitations, edema RESPIRATORY: Reports cough, post nasal drainage. Denies dyspnea GASTROINTESTINAL: Denies abdominal pain, nausea, vomiting, diarrhea SKIN: Denies rash or itching NEUROLOGIC: Denies headache PMFSH Past Medical History Medical History Anxiety and depression Gestational hypertension PMDD (premenstrual dysphoric disorder) Vaginal delivery x1 Morbid obesity with BMI of 40.0-44.9, adult Surgical History Surgical History Previous section x1 History of adenoidectomy History of tonsillectomy Family History Family History Father Acute myocardial infarction Pacemaker Blood clot in vein genetic disorder factor 2 causing multiple blood clots Hypertension Cerebrovascular accident Hypercholesteremia Grandparent Cerebrovascular accident Social History Social History Smoking status: Never smoker Second hand tobacco smoke exposure: No Alcohol intake: never Substance use: never Lack of Transportation: No Lack of Food: Never True Current Housing: I Have Housing Concerned About Future Housing: No Difficulty Paying Gas/Electric Bills: No Difficulty Paying for Meds: No Currently Unemployed: No Education: Bachelor's Degree Living arrangements: with family Occupation/Education: unemployed Gender identity (if verbalized by the patient): Female Spiritual care concerns: No Exam Narrative: GENERAL: well-appearing, nontoxic no acute distress. EYES: conjunctivae clear ENT: Mucous membranes moist. Nasal congestion noted TM pearly main with dull light reflex and clear effusion bilaterally; no tragal tenderness. Oropharynx erythematous without lesions or exudate, no drooling, no hoarseness, no trismus, uvula midline. No tripod positioning, muffled voice, soft palate or pharyngeal wall bulging NECK: Supple. No lymphadenopathy CHEST: Clear to auscultation, breath sounds equal. HEART: Regular rate and rhythm. No murmur heard. SKIN: Warm, dry, no rash. NEURO: Alert and oriented x3. PSYCH: Normal mood and affect Course Course Emergency Course: Patient is aware of diagnosis, understands and agrees to treatment plan. Anticipatory guidance given. Patient agrees to follow-up as directed and is aware of reasons to seek care at the emergency department. Portions of this record may have been created with voice recognition software Level of Care: Express Care Visit Vital Signs Vital signs: Vital Signs Temperature 97.7 F 05/18/25 10:54 Pulse Rate 95 05/18/25 10:54 Respiratory Rate 20 05/18/25 10:54 Blood Pressure 153/79 H 05/18/25 10:54 Pulse Oximetry 99 05/18/25 10:54 Oxygen Delivery Room Air 05/18/25 10:54 Temperature 97.7 F 05/18/25 10:54 Pulse Rate 95 05/18/25 10:54 Respiratory Rate 20 05/18/25 10:54 Blood Pressure 153/79 H 05/18/25 10:54 Pulse Oximetry 99 05/18/25 10:54 Oxygen Delivery Room Air 05/18/25 10:54 reviewed MDM - URI/Sore Throat MDM Narrative Medical decision making narrative: Discussed physical exam findings. Reviewed RX. Advised supportive measures and signs/symptoms to go to the ER. Pt is appropriate for outpt treatment and f/u. Differential Diagnosis Differential diagnosis: Likely upper respiratory infection, sinusitis, viral infection and pharyngitis Discharge Plan Discharge Clinical Impression: Sinusitis Patient Disposition: Home Condition: Stable Instructions: Antibiotic Form, Sinusitis (ED) Additional Instructions: Take antibiotic as directed Recommend Flonase spray and Zyrtec (or Claritin/Arlette) Tylenol 1000mg every 8 hours as needed for pain Symptomatic treatment includes: rest, fluids, and increase humidity of the air at home. Follow up with your primary care provider in 1 week. Go to the ER for worsening symptoms or concerns. Patient Language: Maltese Prescriptions: New amoxicillin-pot clavulanate 875-125 mg tablet 1 tablet PO Q12H 7 Days Qty: 14 0RF No Action albuterol sulfate 90 mcg/actuation HFA aerosol inhaler 2 puff inhalation QID PRN (Reason: shortness of breath or wheezing) Qty: 8.5 0RF lamotrigine 200 mg tablet methylphenidate HCl 18 mg tablet extended release 24hr PO sertraline 50 mg tablet guanfacine 1 mg tablet extended release 24 hr PO lamotrigine 25 mg tablet PO sertraline [Zoloft] 100 mg tablet 100 mg PO DAILY pregabalin [Lyrica] 75 mg capsule 75 mg PO BID Follow-up/Referrals: Ruben,Darrius Barry MD [Primary Care Provider, [facility]] Time of Disposition: 11:12
--- OUTSIDE RECORDS SUMMARY | 2025-05-18 11:48 | XMS_ITS | Clinical Summary ---
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 Gender Identity Not on file Sexual Orientation Not on file Plan of Treatment Health Maintenance Due Date Last Done Comments Cervical Cancer Screening Pa p Smear (Age 30 to 64) Every 3 Years 1984 Annual Physical 1987 Hepatitis C 2002 DTaP, Tdap and Td Vaccines ( 1 - Tdap) 2003 Hepatitis B Vaccines (1 of 3 - 19+ 3-dose series) 2003 HPV Vaccines (1 - 3-dose SCD M series) 2011 Cervical Cancer Screening Pa p with HPV Testing (Age 30 to 64) Every 5 Years 2014 Cervical Cancer Screening with HPV 2014 Mammogram Screening 2024 COVID-19 Vaccine (2023-2 5 season) 2025 Meningococcal B Vaccine Aged Out No l onger eligible based on patient's age to complete this topic Meningococcal Vaccine Aged Out No missy tg eligible based on patient's age to complete this topic Pneumococcal Vaccine: Pediat rics (0 to 5 Years) and At-Risk Patients (6 to 49 Years) Aged Out No longer eligible b ased on patient's age to complete this topic RSV Immunizations Under 20 Months Aged Out No longer eligible based on patient's age to complete this topic
--- OUTSIDE RECORDS SUMMARY | 2025-05-18 11:48 | XMS_ITS | Clinical Summary ---
Author Organization [facility] Address [address] [place] [address] Phone Care Team Providers Care Night Shift Name Role Phone Provider, None Primary Care Provider Unavailabl e Allergies No known active allergies Medications FOLIC ACID PO Take by mouth. Active Social History Tobacco Use Types Packs/Day Years Used Date Smoking Tobacco: Never Alcohol Use Standard Drinks/Week Comments Not Asked 0 (1 standard drink = 0.6 oz pur e alcohol) Comments Unknown Sex and Gender Information Value Date Recorded Sex Assigned at Not on file Legal Sex Female 2:28 AM CDT Gender Identity Not on file Sexual Orientation Not on file Last Filed Vital Signs Vital Sign Reading Time Taken Comments Blood Pressure 124/80 05/23/2015 7:58 AM CDT Pulse 88 05/23/2015 7:58 AM CDT Temperature 36.2 C (97.1 F) 05/23/2015 7:58 AM CDT Respiratory Rate 12 05/23/2015 7:58 AM CDT Oxygen Saturation 98% 05/23/2015 7:58 AM CDT Inhaled Oxygen Concentration - - Weight 130.6 kg (288 lb) 05/23/2015 7:58 AM CDT Height 182.9 cm (6') 05/23/2015 7:58 AM CDT Body Mass Index 39.06 05/23/2015 7:58 AM CDT Plan of Treatment Health Maintenance Due Date Last Done Comments Hepatitis C Virus (HCV) Screening 1984 TdaP Immunization 1984 Hepatitis B Immunization (1 of 3 - 19+ 3-dose series) 2003 Pap Smear 2005 Human Papillomavirus (HPV) Immunization (1 - 3-dose SCDM series) 2011 Cervical Cancer Screening (CCS) 2014 HPV/Cotest 2014 SARS-COV-2 Immunization ( - season) 2024 Influenza Immunization (#1) 2025 Respiratory Syncytial Virus (RSV) Immunization (Adult) (1 - 1-dose 75+ series) 2059 Meningococcal Immunization (ACWY) Aged Out No longer eligible based on patient's age to complete this topic Pneumococcal Immunization Combined Aged Out No longer eligible based on patient's age to complete this topic Rotavirus Immunization Aged Out No lo nger eligible based on patient's age to complete this topic Insurance [facility] Care Teams Night Shift Relationship Specialty Start Date End Date Provider, None [place] PCP - General 02/22/20
== END 2025-05-18 11:16 | disposition home or self-care (01) ==
PROVIDERS: Emergency Provider Nurse Practitioner Family; PCP Emergency Medicine
DX: J32.9 Chronic sinusitis, unspecified (principal); F41.9 Anxiety disorder, unspecified; F32.A Depression, unspecified; E66.01 Morbid (severe) obesity due to excess calories; Z68.41 Body mass index [BMI] 40.0-44.9, adult
CPT/HCPCS: 99213; G0463